=== PATIENT | female | born 1980 | race African-American/Black ===

== ENCOUNTER 2016-06-23 20:49 | Emergency (ER) ==
[2016-06-23 20:58] VITALS: BP 126/88; BMI 38.3
[2016-06-23] MEDS ORDERED: SODIUM CHLORIDE 1,000 ML IV STA (21:03)
[2016-06-23] MEDS ORDERED: ROCEPHIN 1 GM in SODIUM CHLORIDE 50 ML IV STA (21:03)
[2016-06-23] MEDS ORDERED: ZOFRAN 4 MG/2 ML IVP STA (21:04)
[2016-06-23] MEDS ORDERED: TORADOL IVP STA (21:04)
[2016-06-23] MEDS ORDERED: ROCEPHIN ONE (21:15)
[2016-06-23 21:24] LABS: BASOPHILS % (AUTO) 0.4 % (0.0-3.0); EOSINOPHILS # (AUTO) 0.2 K/ul (0.0-0.7); EOSINOPHILS % (AUTO) 2.7 % (0.0-7.0); HEMATOCRIT 40.6 % (37.0-47.0); HEMOGLOBIN 12.5 g/dl (12.0-16.0); IMMATURE GRANULOCYTE % (AUTO) 0.1 % (0.0-5.0); LYMPHOCYTES # (AUTO) 1.8 K/uL (0.60-3.4); LYMPHOCYTES % (AUTO) 25.7 (10.0-50.0); MEAN CORPUSCULAR HEMOGLOBIN 23.3 pg (27.0-31.0); MEAN CORPUSCULAR HGB CONC 30.8 (31.8-35.4); MEAN CORPUSCULAR VOLUME 75.6 fl (81.0-99.0); MONOCYTES # (AUTO) 0.4 K/uL (0.4-2.0); MONOCYTES % (AUTO) 5.2 (0-10); NEUTROPHILS # (AUTO) 4.6 K/ul (2.0-6.9); NEUTROPHILS % (AUTO) 65.9; PLATELET COUNT 288 10^3/uL (140-440); RED BLOOD COUNT 5.37 10^6/ul (4.20-5.40); WHITE BLOOD COUNT 6.92 K/ul (4.6-10.2)
[2016-06-23 21:37] LABS: FLU INTERNAL QC INTERNAL QC VALID; RAPID FLU A NEGATIVE (NEGATIVE); RAPID FLU B NEGATIVE (NEGATIVE)
--- NOTE | 2016-06-23 21:45 | CT ---
EXAM: CT PARANASAL SINUSES HISTORY: Sinus congestion TECHNIQUE: CT paranasal sinuses without contrast. 3-mm axial sections. Coronal and sagittal refor mations. FINDINGS: Comparison may be made to 01/30/2008. Frontal sinuses are grossly clear. The there is mild to moderate mucosal thickening in the ethmoid cells. Sphenoid sinuses have subtle mucosal thickening. Mild mucosal thickening circumferentially of the left maxillary sinus. Minimal mucosal thickening in the right maxillary sinus. Nasal septum is minimally deviated toward the right at its midportion. There is opacification of the mid to upp er right nasal cavity. The visualized turbinates are plump on the right. There is a trace amount o f fluid in the left maxillary sinus. No definite postop changes are seen, correlate with history. IMPRESSION: Acute on chronic sinus disease. Consider ENT consultation as follow-up.
[2016-06-23 21:52] LABS: ALBUMIN 4.2 g/dL (3.4-5.0); ALBUMIN/GLOBULIN RATIO 1.02; BILIRUBIN,TOTAL 0.62 mg/dL (0.00-1.20); BUN/CREATININE RATIO 13.33; CALCIUM 9.5 mg/dL (8.2-10.2); CREATININE 0.9 mg/dL (0.60-1.30); TOTAL PROTEIN 8.3 g/dL (6.4-8.2)
--- NOTE | 2016-06-23 21:53 | CT ---
Exam: CT of the abdomen and pelvis without contrast History: Vomiting Technique: [address] of the abdomen and pelvis without intravascular contrast FINDINGS: The lung bases are clear. No significant liver abnormality. The adrenals, pancreas and sp karlie are unremarkable. The stomach and hiatus are unremarkable. Prior cholecystectomy. The appendix is not seen and there is evidence of prior appendectomy. Bowel loops demonstrate normal caliber. No inflamatory change seen in the mesentery or retroperitoneum. Vascular structures appear normal by n oncontrast CT. Prior hysterectomy. Normal urinary bladder. Normal pelvic bowel loops. No inflammation of the pel eddi fat. No acute findings of the skeleton. Impression: 1. No inflammatory process, bowel or urinary obstruction is seen. No acute findings of the abdomen or pelvis.
--- NOTE | 2016-06-23 21:54 | CT ---
Exam: CT of the chest without contrast History: Cough, fever, nausea vomiting Technique: [address] of the chest without intravascular contrast FINDINGS: The lung windows show no pulmonary parenchymal abnormalities. The heart, great vessels a nd pericardium appear normal by noncontrast CT. No pathologic lymph node enlargement or abundance. No acute findings of the chest wall soft tissues or bony thorax. Impression: 1. No abnormalities of the chest
[2016-06-23] MEDS ORDERED: LIDOCAINE 1 % AMP 5 ML (SUTURES) ONE (22:47)
--- NOTE | 2016-06-23 23:05 | ED.PDOC ---
Procedures - IV/Art Line Insertion Location: Wrist left Type of Line: Peripheral IV Invasive Line/IV Catheter Gauge: 22 Number of Attempts: 1 Blood Return Positive: Yes Invasive Line/IV Flushes Without Difficulty: Yes Conscious Sedation - Pre-op Assessment Weight: 245 lb Surgical History: gallbladder,. appendectomy. hysterectomy 11 years ago - Medical History Past Medical History: Anemia Other History: NO
--- NOTE | 2016-06-23 23:14 | ED.PDOC ---
General ED Provider: Dr. BETHANY BERMEO-ER Chief Complaint: Fever Stated Complaint: im coughing, im hurting all over, im running a fever and i am throwing up Time Seen by Physician: 20:55 Mode of Arrival: Walk-In Information Source: Patient Exam Limitations: No limitations Primary Care Provider: AREN URIOSTEGUI Nursing and Triage Documentation Reviewed and Agree: Yes Respiratory Complaint Exam - Respiratory Complaint/Exam Onset/Duration: 2 days Symptoms Are: Still present Timing: Constant Initial Severity: Mild Current Severity: Mild Location: Nose, Chest Character: Reports: Productive cough Aggravating: Reports: URI Alleviating: Reports: None Associated Signs and Symptoms: Reports: Fever, URI, Nasal congestion, Sinus discomfort, Vomiting, Sore throat. Denies: Rapid breathing, Dyspnea, Chills, Chest pain, Pleuritic chest pain, Wheezing, Hemoptysis, Dizziness, Calf pain, Calf swelling, Edema, Hoarseness, Weight loss, Decreased oral intake, Increased thirst, Increased appetite, Increased urination History of Healthcare-Acquired Pneumonia: No Related Surgical History: Reports: None Pulmonary Embolism Risk Factors: None Cardiac Risk Factors: Reports: None Pseudomonas Risk Factors: Reports: None Tuberculosis Risk Factors: Reports: None Status Asthmaticus Risk Factors: Reports: None Home Oxygen Use: No Recent Stress Test: No Recent Echo/LV Function: No Current Antibiotic Use: No Current Asthma Medication Use: No Respiratory Distress: None Inadequate Respiratory Effort: No Dysphagia Present: No Stridor Present: No JVD Present: No Accessory Muscle Use: No Retractions: Not Present Diminished Breath Sounds: No Sinus Tenderness: Maxillary Grunting Respirations: No Kussmaul Respirations: No Differential Diagnoses: Pneumonia, Bronchitis, Sinusitis, URI, Influenza Review of Systems - Review Of Systems Constitutional: Reports: Fever Eyes: Reports: No symptoms Ears, Nose, Mouth, Throat: Reports: Nose discharge Respiratory: Reports: Cough Cardiac: Reports: No symptoms GI: Reports: Nausea, Vomiting : Reports: No symptoms Musculoskeletal: Reports: No symptoms Skin: Reports: No symptoms Neurological: Reports: No symptoms Endocrine: Reports: No symptoms Hematologic/Lymphatic: Reports: No symptoms All Other Systems: Reviewed and Negative Past Medical History - Past Medical History Endocrine: Reports: None Cardiovascular: Reports: None Respiratory: Reports: None Hematological: Reports: None Gastrointestinal: Reports: None Genitourinary: Reports: None Neuro/Psych: Reports: None Musculoskeletal: Reports: None Cancer: Reports: None Last Menstrual Period: 11 years ago - Surgical History General Surgical History: Reports: Appendectomy, Cholecystectomy - Family History Family History: Reports: None - Social History Smoking Status: Never smoker Hx Substance Use: No Alcohol Screening: Occasionally Lives: With family - Immunizations Tetanus Shot up to Date: Yes Physical Exam - Physical Exam Appearance: Well-appearing Ill-appearing: Mild Pain Distress: Mild Eyes: NORMA, EOMI, Conjunctiva clear ENT: Rhinorrhea Neck: Supple Respiratory: Airway patent, Breath sounds clear, Breath sounds equal, Respirations nonlabored Cardiovascular: RRR GI/: Soft, Nontender, No masses, Bowel sounds normal, No Organomegaly Musculoskeletal: Normal strength, ROM intact, No edema, No calf tenderness Skin: Warm, Dry, Normal color Neurological: Sensation intact, Motor intact, Reflexes intact, Cranial nerves intact, Alert, Oriented Psychiatric: Affect appropriate, Mood appropriate Interpretation - Radiology Interpretation Radiology Interpretation By: Radiologist Radiology Results: Positive Exam Interpreted: CT Scan Re-Evaluation - Re-Evaluation Time of Re-Evaluation: 06:06 Status: Improved Vital Signs Stable: Yes Pain Level: 0 Appearance: NAD Lungs: Clear Skin: Warm and Dry Neuro: Alert and Oriented X3 CV: RRR Critical Care Note - Critical Care Note Total Time (mins): 0 Course - Course Hematology/Chemistry: 06/23/16 21:20 06/23/16 21:20 Orders, Labs, Meds: Lab Review 06/23/16 06/23/16 21:10 21:20 WBC 6.92 RBC 5.37 Hgb 12.5 Hct 40.6 MCV 75.6 L MCH 23.3 L MCHC 30.8 L RDW Coeff of Adry 14.0 Plt Count 288 Immature Gran % (Auto) 0.1 Neut % (Auto) 65.9 Lymph % (Auto) 25.7 [place] % (Auto) 5.2 Eos % (Auto) 2.7 Baso % (Auto) 0.4 Immature Gran # (Auto) 0.0 Neut # 4.6 Lymph # 1.8 [place] # 0.4 Eos # 0.2 Baso # 0.0 D-Dimer 0.79 Sodium 142 Potassium 4.0 Chloride 105 Carbon Dioxide 24 Anion Gap 17.0 BUN 12 Creatinine 0.90 Estimated GFR (MDRD) 85.00 BUN/Creatinine Ratio 13.33 Glucose 69 L Calcium 9.5 Total Bilirubin 0.62 AST 20 ALT 24 Alkaline Phosphatase 94 Total Protein 8.3 H Albumin 4.2 Globulin 4.1 Albumin/Globulin Ratio 1.02 Influenza A (Rapid) Negative Influenza B (Rapid) Negative Orders Category Date Time Status ED IV/MEDIPORT/POWERPORT .ONCE EMERGENCY 06/23/16 21:03 Active BLOOD CULTURE Stat LAB 06/23/16 21:20 Received CBC W/ AUTO DIFF Stat LAB 06/23/16 21:20 Completed COMPREHENSIVE METABOLIC PANEL Stat LAB 06/23/16 21:20 Completed D-DIMER Stat LAB 06/23/16 21:20 Completed MOLECULAR GROUP A STREP Stat LAB 06/23/16 21:10 Results RAPID FLU A/B Stat LAB 06/23/16 21:10 Completed STREP SCREEN Stat LAB 06/23/16 21:10 Results 0.9 % Sodium Chloride [Saline Flush] MEDS 06/23/16 21:03 Ordered 1 syr IVF PRN PRN Acetaminophen [Tylenol] MEDS 06/24/16 00:24 Ordered 650 mg PO Q4H PRN Ceftriaxone Sodium [Rocephin] MEDS 06/23/16 21:15 Discontinued 1 gm .ROUTE .STK-MED ONE Ceftriaxone Sodium [Rocephin] 1 gm MEDS 06/23/16 21:03 Discontinued 0.9 % Sodium Chloride [Sodium Chloride] 50 ml IV ONCE Ketorolac Tromethamine [Toradol] MEDS 06/23/16 21:04 Discontinued 30 mg IVP ONCE STA Lidocaine HCl/Pf [Lidocaine 1 % Amp 5 ml (Sutures)] MEDS 06/23/16 22:47 Discontinued 5 ml .ROUTE .STK-MED ONE Morphine Sulfate [Morphine 2 mg/ml Syringe] MEDS 06/24/16 00:25 Ordered 2 mg IVP Q4H PRN Ondansetron HCl/Pf [Zofran 4 mg/2 ml] MEDS 06/23/16 21:04 Discontinued 4 mg IVP ONCE STA Promethazine HCl [Phenergan 25 mg/ml Vial] MEDS 06/24/16 00:50 Discontinued 25 mg .ROUTE .STK-MED ONE Promethazine HCl [Phenergan 25 mg/ml Vial] 25 mg MEDS 06/24/16 00:24 Discontinued 0.9 % Sodium Chloride [Sodium Chloride] 50 ml IV ONCE Sodium Chloride 0.9% [Sodium Chloride] 1,000 ml MEDS 06/24/16 02:03 Active IV 125 mls/hr Sodium Chloride 0.9% [Sodium Chloride] 1,000 ml MEDS 06/23/16 21:[address] ABDOMEN/PELVIS WO CONTRAST Stat RADS 06/23/16 21:[address] CHEST W/O CONTRAST Stat RADS 06/23/16 21:[address] SINUSES W/O CONTRAST Stat RADS 06/23/16 21:04 Completed Medications Generic Name Dose Route Start Last Admin Trade Name Freq PRN Reason Stop Dose Admin Acetaminophen 650 mg 06/24/16 00:24 Tylenol PO Q4H PRN Fever >101 Sodium Chloride 1,000 mls @ 125 mls/hr 06/24/16 02:03 06/24/16 02:12 Sodium Chloride IV 06/24/16 10:02 125 mls/hr .Q8H STA Administration Morphine Sulfate 2 mg 06/24/16 00:25 Morphine 2 Mg/Ml Syringe IVP Q4H PRN MODERATE PAIN Sodium Chloride 1 syr 06/23/16 21:03 Saline Flush IVF PRN PRN To flush IV Discontinued Medications Generic Name Dose Route Start Last Admin Trade Name Freq PRN Reason Stop Dose Admin Ceftriaxone Sodium 1 gm/ 50 mls @ 75 mls/hr 06/23/16 21:03 06/23/16 23:07 Sodium Chloride IV 06/23/16 21:42 75 mls/hr ONCE STA Administration Sodium Chloride 1,000 mls @ 1,000 mls/hr 06/23/16 21:03 06/23/16 23:07 Sodium Chloride IV 06/23/16 22:02 1,000 mls/hr BOLUS STA Administration Promethazine HCl 25 mg/ Sodium 51 mls @ 75 mls/hr 06/24/16 00:24 06/24/16 01: 10 Chloride IV 06/24/16 01:04 75 mls/hr ONCE STA Administration Ketorolac Tromethamine 30 mg 06/23/16 21:04 06/23/16 23:07 Toradol IVP 06/23/16 21:05 30 mg ONCE STA Administration Ondansetron HCl 4 mg 06/23/16 21:04 06/23/16 23:08 Zofran 4 Mg/2 Ml IVP 06/23/16 21:05 4 mg ONCE STA Administration Vital Signs: Temp Pulse Resp BP Pulse Ox 06/24/16 00:47 98.1 F 06/23/16 20:50 100.9 F H 109 H 20 126/88 97 Departure - Departure Time of Disposition: 06:06 Disposition: HOME SELF-CARE Discharge Problem: Sinusitis Qualifiers: Sinusitis location: unspecified location Chronicity: acute Recurrence: not specified as recurrent Qualifier Code: (J01.90) Acute sinusitis, unspecified Instructions: Sinusitis (ED) Condition: Good Pt referred to PMD for follow-up: Yes Additional Instructions: augmentin 875mg bid x 10 days--flonase nasal spray one puff each nostril bid --- zofran 4mg q 4hrs prn nausea#4--fluids--rest--recheck in 48hrs if not better Allergies/Adverse Reactions: Allergies butorphanol tartrate [From Stadol] Adverse Reaction (Verified 06/23/16 20:55) Home Medications: Ambulatory Orders 1 [No Reported Medications] 06/23/16 Disposition Discussed With: Patient, Family
[2016-06-24] MEDS ORDERED: PHENERGAN 25 MG/ML VIAL 25 MG in SODIUM CHLORIDE 50 ML IV STA (00:24)
[2016-06-24] MEDS ORDERED: TYLENOL PO PRN (00:24)
[2016-06-24] MEDS ORDERED: MORPHINE 2 MG/ML SYRINGE IVP PRN (00:25)
[2016-06-24 00:47] VITALS: TEMP 98.1
[2016-06-24] MEDS ORDERED: PHENERGAN 25 MG/ML VIAL ONE (00:50)
[2016-06-24] MEDS ORDERED: SODIUM CHLORIDE 1,000 ML IV STA (02:03)
== END 2016-06-24 06:15 | disposition home or self-care (01) ==
LOC: ED 20:49
DX: J01.90 Acute sinusitis, unspecified (principal); R11.10 Vomiting, unspecified
CPT/HCPCS: 36415; 80053; 85025; 85379; 87040; 87651; 87804; 87880; 96361; 96365; 96367; 96375; 99284

== ENCOUNTER 2016-08-26 09:21 | Outpatient (CLI) ==
[2016-08-26 13:05] LABS: BILIRUBIN,URINE 1+ (NEGATIVE); KETONES,URINE 2+ (NEGATIVE); LEUKOCYTE ESTERASE ,URINE Negative (NEGATIVE); NITRITE,URINE Negative (NEGATIVE); PROTEIN,URINE Trace (NEGATIVE); URINE, BLOOD 1+ (NEGATIVE)
[2016-08-26 13:07] LABS: ADD URINE MICROSCOPIC YES
[2016-08-28 07:24] LABS: RAPID PLASMA REAGIN Non Reactive (Non Reactive)
[2016-08-30 07:28] LABS: HIV ANTIBODIES QUALITATIVE NON REACTIVE (Nonreactive)
== END 2016-08-26 09:22 | disposition home or self-care (01) ==
LOC: LAB 09:21
PROVIDERS: ATTEND Nurse Practitioner Family
DX: Z20.2 Contact with and (suspected) exposure to infections with a predominantly sexual mode of transmission (principal)
CPT/HCPCS: 36415; 80074; 81001; 86592; 86695; 86696; 86701; 87800

== ENCOUNTER 2017-03-04 11:21 | Outpatient (CLI) ==
--- NOTE | 2017-03-04 12:47 | CT ---
EXAM: CT Abdomen without contrast. CT Pelvis without contrast. HISTORY: Left flank pain. Hematuria. COMPARISON: 06/23/2016. TECHNIQUE: Multiple axial images of the abdomen and pelvis were obtained without intravenous contras t. Images were reformatted in the coronal plane. FINDINGS: Please note that evaluation of the abdominal and pelvic structures is limited due to lack of intravenous contrast. The lung bases are clear. No acute osseous abnormality identified. Gallbladder is absent. The liver, pancreas, spleen, and adrenal glands demonstrate normal contour. No calcified renal stones, hydronephrosis or perinephric inflammation identified. No ureteral or sary dder calculi are seen. The bowel is normal in course and caliber without evidence for obstruction or inflammatory process. Suspect prior appendectomy. Uterus is absent. Urinary bladder is not well distended. Phleboliths i n the pelvis. No free fluid or free air identified. IMPRESSION: No evidence for nephrolithiasis or obstructive uropathy. No acute abnormality within the abdomen or pelvis.
== END 2017-03-04 11:22 | disposition home or self-care (01) ==
LOC: RAD 11:21
PROVIDERS: ATTEND Nurse Practitioner Family
DX: R31.9 Hematuria, unspecified (principal); M54.9 Dorsalgia, unspecified
CPT/HCPCS: 74176

== ENCOUNTER 2017-04-05 15:41 | Emergency (ER) ==
[2017-04-05 15:46] VITALS: BP 114/77; TEMP 96.8; BMI 28.1
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
--- NOTE | 2017-04-05 16:43 | DI ---
EXAM: Radiographs, right elbow HISTORY: Initial presentation for right elbow trauma. COMPARISON: None available. TECHNIQUE: Three views. FINDINGS: Bone mineralization is normal. There is no fracture or dislocation. The joint spaces are maintained although there is mild spurring off the coronoid process of the ulna. No focal soft tiss ue abnormality is seen. IMPRESSION: No fracture or dislocation.
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
== END 2017-04-05 17:24 | disposition home or self-care (01) ==
LOC: ED 15:41
DX: S70.12XA Contusion of left thigh, initial encounter (principal); S70.11XA Contusion of right thigh, initial encounter; S50.01XA Contusion of right elbow, initial encounter; R07.89 Other chest pain; M54.5 Low back pain; V49.40XA Driver injured in collision with unspecified motor vehicles in traffic accident, initial encounter
CPT/HCPCS: 99283

== ENCOUNTER 2017-05-27 10:59 | Outpatient (CLI) ==
--- NOTE | 2017-05-27 13:25 | DI ---
EXAM: Four views of the right ribs. History: Right rib pain. Comparison: Chest radiograph 03/21/2014 Findings: The right lung is free of consolidation. No right pleural effusion and no right-sided pne umothorax. Cholecystectomy clips. No acute displaced right-sided rib fractures. Impression: Unremarkable right rib series
== END 2017-05-27 11:00 | disposition home or self-care (01) ==
LOC: RAD 10:59
PROVIDERS: ATTEND Nurse Practitioner Family
DX: R07.81 Pleurodynia (principal); R50.9 Fever, unspecified
CPT/HCPCS: 87502